=== PATIENT | male | born 1960 | race African-American/Black ===

== ENCOUNTER 2019-06-29 16:22 | Inpatient (IN) | payer OTHER ==
[2019-06-29] MEDS ORDERED: Fentanyl 100 MCG/2 ML VIAL ONE (16:45)
[2019-06-29] MEDS ORDERED: fentaNYL Citrate/PF 2,000 MCG in Sodium Chloride 0.9% 60 ML IV SCH ×2 (16:51→19:34)
[2019-06-29 17:01] LABS: Actual Bicarbonate (HCO3a) 19.6 mEq/L (22-28); Analyzer IN Cardio ER; Base Excess (BEa) -5.4 mEq/L (-2.0 to +3.0); CO2 Tension 36.6 mmHg (35.0-45.0); Carboxyhemoglobin (COHb) 1.1 gm% (0.0-3.0); Hemoglobin (Hb) 12.9 g/dL (14.0-18.0); O2 Tension (PaO2) 86.2 mmHg (80.0-100.0); Potassium - ABG Lab 4.33 mmol/L (3.70-5.30); pH, Arterial 7.35 (7.35-7.45)
[2019-06-29 17:03] LABS: Puncture Site RB
[2019-06-29 18:09] LABS: INR-International Normal Ratio 1.3; PTT 36.2 SEC (22.9-36.1); Prothrombin Time 16.5 SEC (12.0-14.7)
--- NOTE | 2019-06-29 18:24 | CT ---
CT Brain WO Con: 06/29/2019 5:42 PM CLINICAL HISTORY: Intracranial bleed. COMPARISON: None available. FINDINGS: Large high density, acute hemorrhage of the right cerebral hemisphere with a significant degree of casarez rrounding vasogenic edema is present. This is centered about an adjacent hyperdense mass. There is associated mass effect and midline shift with ventricular effacement. At the level of septum pellucidum, there is approximately 8 mm leftward midline shift. There is a hyperdense lesion at the right cerebral convexity with vasogenic edema indicating an addit ional metastatic lesion. IMPRESSION: Large intracranial hemorrhage with vasogenic edema and mass effect/midline shift. There are intracran ial lesions indicative of metastatic disease. Telephone call placed to ER physician at 1818 hours. Transcribed Date/Time: 06/29/2019 6:52 PM
[2019-06-29] MEDS ORDERED: Ondansetron PF 4 MG/2 ML Vial IVP PRN (18:33)
[2019-06-29] MEDS ORDERED: Mag-Al 1200 mg/1200 mg/30 ML UDCUP PO PRN (18:33)
[2019-06-29 18:48] LABS: #Basophils 0.1 thou/uL (0.0-0.2); #Lymphocytes 1.2 thou/uL (1.20-3.40); #Monocytes 1.3 thou/uL (0.11-0.59); #Neutrophils 13.7 thou/uL (1.40-6.50); %Basophils 0.3 % (0.0-1.0); %Lymphocytes 7.3 % (21.0-51.0); %Monocytes 7.9 % (0.0-10.0); %Neutrophils 84.5 % (42.0-75.0); Hemoglobin 13.7 g/dL (14.0-18.0); Mean Corpuscular HGB CONC 30.7 g/dL (32.0-36.0); Mean Platelet Volume 7.2 fL (7.4-10.4); Platelet Count 377 thou/uL (130-400); RBC Distribution Width 15.2 % (11.5-14.5); Red Blood Cell (RBC) Count 5.05 mill/uL (4.70-6.10); White Blood Cell (WBC) Count 16.2 thou/uL (4.8-10.8)
[2019-06-29 19:13] LABS: Anion Gap 18 mmol/L (10-20); BUN (Urea Nitrogen) 15 mg/dL (8.4-25.7); Bilirubin, Direct 1.2 mg/dL (0.1-0.3); Bilirubin, Total 1.9 mg/dL (0.2-1.2); Calc. Creatinine Clearance 0 mL/min (70-130); Calcium 9.2 mg/dL (7.8-10.44); Carbon Dioxide 19 mmol/L (22-29); Chloride 101 mmol/L (98-107); Estimated GFR-MDRD Greater than 90; Glucose 135 mg/dL (70-105); Sodium 133 mmol/L (136-145)
[2019-06-29 19:21] LABS: ALT (SGPT) 37 U/L (8-55); AST (SGOT) 142 U/L (5-34); Albumin 2.6 g/dL (3.5-5.0); Alkaline Phosphatase 159 U/L (40-110); Bilirubin, Direct 1.3 mg/dL (0.1-0.3); Protein, Total 7.7 g/dL (6.0-8.3); Transferrin, Serum 193 mg/dL (174-364)
[2019-06-29] MEDS ORDERED: Propofol 1,000 MG/100 ML VIAL IV PRN (19:34)
[2019-06-29] MEDS ORDERED: DISCONTINUE PREVIOUS NARCOTIC PAIN MEDICATIONS AND BENZODIAZEPINES FS SCH (19:34)
[2019-06-29] MEDS ORDERED: Lorazepam 2 MG/ML VIAL SLOW IVP PRN (19:34)
[2019-06-29] MEDS ORDERED: Fentanyl BOLUS 250 ML IVPB PRN (19:34)
[2019-06-29] MEDS ORDERED: Morphine 2 MG/ML SYRINGE SLOW IVP PRN (19:34)
[2019-06-29] MEDS ORDERED: Propofol BOLUS 1,000 MG/100 ML VIAL IV PRN (19:34)
[2019-06-29] MEDS: Famotidine/PF 20 mg/2ml Vial SLOW IVP SCH (20:38)
[2019-06-29] MEDS: Mannitol 12.5 GM/50 ML IV SCH (20:56)
--- NOTE | 2019-06-29 22:18 | PRG ---
DATE OF SERVICE: 06/29/2019 I personally examined the patient, reviewed imaging and records and agreed with the notes of Virginia Soto PA-C, dated 06/29/2019. Briefly, Ernie Rey is a 58-year-old prisoner who has recently been treated for bilateral pulmonary emboli with hypercoagulability resulting in the blood clots that threatened his life, it was likely from his diagnosis of liver cancer. Records indicate he carries a diagnosis of hepatitis C as well and therefore I believe the liver lesion is likely hepatocellular carcinoma related to his virus. It is in this setting that Mr. Rye was started on Lovenox to treat his pulmonary emboli. He had a neurological deterioration and was taken to the [facility] and transferred to [facility] after intubation. CT imaging of the brain revealed hemorrhage within the right hemisphere. It also revealed at least 2 masses (likely metastases) with surrounding vasogenic edema. There was a significant amount of mass effect with midline shift. There was vasogenic edema extending to the brainstem. Protamine was given at some point along the way and I have been told that it has been at least 18-20 hours since his last dose of the Lovenox. Repeat imaging did not show significant increase in the size of the intracerebral hemorrhage, but still documented the likely metastatic disease and edema with mass effect. I am seeing Mr. Rey in his ICU room now on the ventilator. Latest vitals shows a temperature 97.8 degrees Fahrenheit. His pulse is 111. He is breathing 26 times a minute. There is no sedation running currently and the medications used for sedation during intubation have worn off. Mr. Rey attempts to open his eyes to loud voice and gets his lids apart, but I do not see the irises. He does follow commands with the right hand and the right foot. When I ask complex questions and then ask him to raise his thumb if he understands, he responds about 40% of the time. This is not enough communication to make major medical decisions. The left side of the body is plegic. He has some reflex triple flexion in the left lower extremity with no motion on the left upper extremity. White blood cell count is 16.2 and platelets are 377. Sodium is low at 133. He has a low serum albumin at 2.6. AST and alkaline phosphatase are elevated, but the ALT is normal. Total and direct bilirubin are high. Current INR is 1.3 and APTT is 36.2. CT imaging was reviewed and discussed above. This is a difficult situation. Mr. Rey is currently following commands on the right side. He could participate in decision making, but he is not conscious enough to follow our conversation and the nuances of how to proceed. Mr. Rey hemorrhage has left him with some permanent neurological deficits that will not recover including the likely dense left hemiparesis or hemiplegia. If swelling increases or hemorrhage enlarges, then he will have a life threatening condition for which surgical intervention could save his life, but not return neurologic function. In this setting, I personally would not want aggressive measures and I certainly would not want a craniotomy. For parents or my siblings, I would not want that either. I would love the opportunity to discuss his care with his sister, but I have tried on the phone number of Cecy Perkins multiple times and there was no answer. There was no return call. I have spoken with Carlita dow, at the [facility] who does not want to make medical decisions for him. I have called emergency ethics review in case he deteriorates abruptly and we need to operate to save the life. There is a reasonable chance that he could survive this simply with medical therapy, blood pressure control, and intermittent mannitol and steroids. However, the brain metastases will need to be addressed if he wants to survive long-term and chemoradiotherapy likely recommended for any metastatic disease elsewhere. This is clearly advanced end-of-life decision making and knowing his wishes would be important. I will wait to hear from the ethics committee and thankful that he is neurologically stable from his admission so far. Job ID: [id number]
--- NOTE | 2019-06-29 22:19 | PRG ---
DATE OF SERVICE: 06/29/2019 I had a discussion with the Ethics Committee members about level of care to offer Mr. Rey, trying to balance the ethics of comfort treatment versus aggressive treatment. We had discussed the case with the warden as well, and reached the conclusion that we will not operate for any increasing swelling or increasing intracerebral hemorrhage, and we will not perform chest compressions should he develop a life-threatening dysrhythmia. However, we will continue with the intubation. We will continue with intermittent mannitol, and we will start Decadron therapy. We will add Protonix. We will use seizure prophylaxis and continue medical treatment only. As decisions need to be made going forward (tracheostomy, gastrostomy, continuation of care, or extubation, for example), then a continuing consultation with the Ethics Committee will be open, and Palliative Care Team will be contacted as well. As we have decided not to operate via craniotomy, then the Neurosurgery Team will provide aids counselor to the committee rather than intervention. I placed the DNR order in the computer system. Job ID: [id number] MTDD
[2019-06-29] MEDS ORDERED: Dextrose 50% Abboject 50 ML SYRINGE SLOW IVP PRN (22:20)
[2019-06-29] MEDS ORDERED: Dextrose 5% in Water 1,000 ML IV PRN (22:20)
[2019-06-29] MEDS ORDERED: Insulin Regular 300 UNITS/3 ML VIAL SC PRN ×2 (22:20)
[2019-06-29] MEDS ORDERED: Sodium Chloride 0.9% 1,000 ML IV SCH (22:30)
--- NOTE | 2019-06-29 23:15 | PRG ---
DATE OF SERVICE: 06/29/2019 SUBJECTIVE: The patient is a 58-year-old male who is an inmate. His has currently been admitted for intracranial hemorrhage. At this time, he is on mechanical ventilation and no information is available. From review of record, he was diagnosed with bilateral pulmonary embolism and is currently on anticoagulation. He also has history of liver cancer with metastasis. He presented to [facility] Room and was transferred to this facility for hospital admission. REVIEW OF SYSTEMS: Cannot be obtained from the patient due to current cognitive status. PHYSICAL EXAMINATION: CURRENT VITAL SIGNS: Temperature 97.8 with respirations of 16, blood pressure of 99/78, with heart rate of 103, O2 saturation 100% on mechanical ventilation. GENERAL: A 58-year-old male, in no apparent distress. LUNGS: Decreased air entry at the right base. No wheezing, rales, or rhonchi. HEART: S1 and S2 present. Regular. Tachycardic. No rubs or gallops. ABDOMEN: Soft, nontender. Bowel sounds present. EXTREMITIES: No edema or calf tenderness. NEUROLOGY AND PSYCHIATRY EXAMINATION: Could not be done due to mechanical ventilation/sedation. CODE STATUS: The patient has been changed to DNR per primary service after discussion with Ethics Committee. IMPRESSION: 1. Intracranial hemorrhage, management per primary service. 2. Acute respiratory failure secondary to #1. 3. History of bilateral pulmonary embolism, was on anticoagulation on admission. 4. History of liver cancer with metastasis. 5. Chronic hepatitis C. 6. Diabetes mellitus type 2. 7. Hypertension. 8. Hyperlipidemia. 9. Coronary artery disease. 10. Hypothyroidism. 11. Hyponatremia. 12. Moderate protein calorie malnutrition. 13. Abnormal liver function tests probably secondary to liver cancer. 14. Mild anemia, suspected to be chronic. DIAGNOSTIC TESTS: EKG by my review showed sinus rhythm without significant ST-T wave changes. Chest x-ray at [facility] showed large right-sided pleural effusion with large pulmonary opacities medially at the right mid lung zone with evidence of left-sided pulmonary metastasis. LABORATORY FINDINGS: WBC 16.2 with hemoglobin 13.7, hematocrit 44.5, platelets of 377. Sodium 133, potassium 5, chloride 101, bicarb 19, total bilirubin 2.0 with direct bilirubin 1.3. Albumin of 2.5. CT scan of the brain showed large intracranial hemorrhage with vasogenic edema and mass effect/midline shift. PLAN: The patient is currently on mechanical ventilation. He has been started on Decadron with GI prophylaxis. Continue ventilation-sedation protocol. We will add gentle IV hydration. He is also placed on seizure prophylaxis. We will add mild sliding scale. Continue Accu-Cheks q.6 hourly. Continue current ventilation setting per Pulmonary. We will recheck labs in a.m. Job ID: [id number]
[2019-06-29] MEDS: Sodium Chloride 0.9% 1,000 ML IV SCH (23:39)
[2019-06-29] MEDS: Dexamethasone 4 mg/ml Vial SLOW IVP SCH (23:39)
[2019-06-30] MEDS: Mannitol 12.5 GM/50 ML IV SCH (02:47)
[2019-06-30] MEDS ORDERED: Sodium Chloride 0.9% 250 ML IV SCH (05:45)
[2019-06-30] MEDS: Dexamethasone 4 mg/ml Vial SLOW IVP SCH ×4 (06:00→23:30)
[2019-06-30] MEDS: Sodium Chloride 0.9% 1,000 ML IV SCH ×3 (06:00→17:41)
[2019-06-30] MEDS ORDERED: Sodium Chloride 0.9% 250 ML IV PRN (06:15)
[2019-06-30 06:21] LABS: Hemoglobin 13.7 g/dL (14.0-18.0); Lymphocytes 10 % (21-51); MDiff Complete? YES; Mean Corpuscular HGB CONC 31.2 g/dL (32.0-36.0); Mean Corpuscular Hemoglobin 27.1 pg (27.0-31.0); Mean Corpuscular Volume 86.8 fL (78.0-98.0); Mean Platelet Volume 7.5 fL (7.4-10.4); Monocytes 1 % (0-10); Neutrophil 89 % (42-75); Platelet Count 380 thou/uL (130-400); Platelet Morphology Comment Appears Adequate; RBC Distribution Width 15.1 % (11.5-14.5); Red Blood Cell (RBC) Count 5.04 mill/uL (4.70-6.10); White Blood Cell (WBC) Count 10.4 thou/uL (4.8-10.8)
[2019-06-30 06:36] LABS: ALT (SGPT) 38 U/L (8-55); AST (SGOT) 161 U/L (5-34); Albumin 2.3 g/dL (3.5-5.0); Alkaline Phosphatase 138 U/L (40-110); Anion Gap 17 mmol/L (10-20); BUN (Urea Nitrogen) 19 mg/dL (8.4-25.7); Bilirubin, Total 1.7 mg/dL (0.2-1.2); Calc. Creatinine Clearance 81 mL/min (70-130); Calcium 8.6 mg/dL (7.8-10.44); Carbon Dioxide 18 mmol/L (22-29); Chloride 103 mmol/L (98-107); Estimated GFR-MDRD Greater than 90; Globulin 4.8 g/dL (2.4-3.5); Glucose 168 mg/dL (70-105); Potassium 5.5 mmol/L (3.5-5.1); Protein, Total 7.1 g/dL (6.0-8.3); Sodium 132 mmol/L (136-145)
[2019-06-30 07:18] LABS: Actual Bicarbonate (HCO3a) 18.8 mEq/L (22-28); Base Excess (BEa) -5.7 mEq/L (-2.0 to +3.0); CO2 Tension 34.1 mmHg (35.0-45.0); Calcium, Ionized 1.19 mmol/L (1.12-1.30); Carboxyhemoglobin (COHb) 1.7 gm% (0.0-3.0); Hemoglobin (Hb) 13.1 g/dL (14.0-18.0); O2 Tension (PaO2) 84.2 mmHg (80.0-100.0); Potassium - ABG Lab 5.51 mmol/L (3.70-5.30); pH, Arterial 7.36 (7.35-7.45)
[2019-06-30 07:19] LABS: ALV-art Gradient 158.375 (0-20); Puncture Site LBA
--- NOTE | 2019-06-30 07:19 | HP ---
HISTORY OF PRESENT ILLNESS: Mr. Rey is a 58-year-old male with past medical history significant for hepatitis C; cirrhosis; liver cancer; bilateral PE, on Lovenox. He is a prisoner and was brought to the Emergency Department over to [place] with [facility] consultation. He had a headache last night, began to be altered and with some left-sided weakness, got to the ED, deteriorated more and they decided to intubate. CT of the brain shows a large intracerebral hemorrhage with mass effect. He was transferred to [facility] for continued workup. Patient has not been without liver cancer with recent diagnosis of metastasis to the lungs, diagnosed with PE, currently taking Lovenox. He was given protamine while at the [place] ER and mannitol prior to transfer. Upon transfer, I see him in the emergency department, he has been off propofol and he is following commands on the right upper and lower extremities. He has no response to left upper or lower extremities, even painful stimuli. His pupils are small, but reactive and he has not been fighting the ventilator. REVIEW OF SYSTEMS: A 10-point review of systems is unable to be obtained. PAST MEDICAL HISTORY: Per the chart, hepatitis C, cirrhosis, liver cancer, cardiac artery disease, hypothyroidism, diabetes, hyperlipidemia, and hypertension. PAST SURGICAL HISTORY: Knee surgery. SOCIAL HISTORY: He is an inmate of a correctional facility. ALLERGIES: UNKNOWN, EXCEPT NICOTINIC ACID. PHYSICAL EXAMINATION: VITAL SIGNS: Blood pressure 99/78, heart rate 104, respirations 16, O2 sats 97% on the ventilator, and temperature 96.7 rectally. CONSTITUTIONAL: Patient is currently intubated. He is afebrile, slightly hypotensive. He has GCS of 8. HEENT: Head is normocephalic, atraumatic. Pupils are equal, round, and reactive to light. RESPIRATIONS: Normal on ventilator. Symmetric chest rise. EXTREMITIES: Patient is moving the right side, upper and lower extremities spontaneously and following commands. He has not shown any movement on the left, did not move to painful stimuli either. NEUROLOGIC: Patient's GCS is 8; 1, 1, 6. He is following commands on the right upper and lower extremities. He was able to use my hand and show me his thumb, wiggle his toes. No response to painful stimuli in the left upper or lower extremities. He is currently weaning off the ventilator. CT brain. First one is done at [facility], second one done at [facility], large intracranial hemorrhage with vasogenic edema, mass effect, and midline shift. There is intracranial lesion indicative of metastasis disease. ASSESSMENT AND PLAN: Mr. Rey is a 58-year-old male with cirrhosis; hepatitis C; liver cancer, now metastasis to his lungs. There is evidence of a new lesion in his brain and significant hemorrhage with midline shift. He is currently intubated, following commands of his right upper and lower extremities. No response to left upper or lower extremities. We are admitting him to the ICU, where he has received mannitol 40 mg IV push over at [facility]. He also had protamine at that time. He found out what his wishes would be. We are ordering LFTs, platelets, total protein, total bili , consulting hospitalist of Pulmonary Critical Medicine and likely Oncology for new lesion. We may need to perform a craniotomy to relieve pressure. This decision will be made shortly. For further information, please contact Neurosurgery team. Job ID: [id number]
--- NOTE | 2019-06-30 07:35 | PRG ---
DATE OF SERVICE: 06/30/2019 I saw Ernie Rey in his ICU room this morning. No events have been reported overnight. No one got any contact with family members and the warden did not make any end-of-life decisions for him yesterday. We convened a small ethics committee of three and agreed with the decision not to operate on this patient and not to perform chest compressions should he develop a life-threatening cardiac dysrhythmia. More decisions need to be made, however. Overnight, there has been no fever recorded. Blood pressures are low in the 80s to 90s. On examination, Mr. Rey attempt to open his eyes to loud voice. His lids get custodial up, and I can see sclerae, but no iris. Pupils react although the right is bit large. Mr. Rey follow commands on the right side of his body, has been lifting his thumb and wiggling his toes. There is no movement at all on the left. There is a bit of triple flexion to stimulus of the left foot, but that reflex activity is all I can generate. In spite of mannitol therapy, the sodium dropped to 132 from 133 yesterday. The white cell count came down to 10.4, the platelets are 380. Mr. Rey has multiple diagnoses. From report, he has hepatitis C and hepatocellular carcinoma. He has metastases in the brain, he has bilateral pulmonary emboli, and he has intracerebral hemorrhage from the combination of anticoagulation and brain metastasis. Thankfully, Mr. Rey did not have a neurological deterioration overnight. We decided that neurosurgical intervention is not warranted, but there will be more decisions to make regarding tube feeds, tracheostomy, and placement versus comfort measures. These will need to be made in ethics committee or by a fixture relamper. I will consult the Medical Team and the Palliative Care Team, and the Medical Team will likely assume primary care of the patient for this nonsurgical intracerebral hemorrhage. Job ID: [id number] [facility]
--- NOTE | 2019-06-30 07:46 | CT ---
PRELIMINARY REPORT/[facility]/EMERGENCY AFTER HOURS PROCEDURE PROCEDURE INFORMATION: Exam: CT Head Without Contrast Exam date and time: 06/30/2019 3:36 AM Clinical history: 58 years old, male; Condition or disease; Patient HX: F/u ich TECHNIQUE: Imaging protocol: Computed tomography of the head without contrast. COMPARISON: CT Brain WO Con 06/29/2019 6:08 PM FINDINGS: Brain: Direct comparison of known right basal ganglia known hemorrhage is limited due to difference of head position and/or gantry angulation, however no significant interval change is detected with marked surrounding hypodense halo. Unchanged midline shift. Ventricles: Unchanged right lateral ventricle compression and borderline prominence of left lateral ventricle due to midline shift. Bones/joints: No acute fracture. Sinuses: No fluid levels. Mastoid air cells: Aerated. Soft tissues: Unremarkable. IMPRESSION: No significant interval change. Thank you for allowing us to participate in the care of your patient. Dictated and Authenticated by: Jessica Ramirez MD 06/30/2019 4:21 AM Central Time ([place] & [place]) FINAL REPORT HEAD CT WITHOUT CONTRAST: Date: 06/30/2019 COMPARISON: 06/29/2019. HISTORY: Reevaluate intracranial hemorrhage. FINDINGS: I agree with the preliminary report. There is an intra-axial hemorrhage on the right center ed within the basal ganglia measuring 5.8 cm in AP dimension, not significantly changed. There is surrounding vasogenic edema. There are intra-axial mass lesions as well, including a 2.9 cm mass just lateral to the above-described intra-axial hemorrhage. There is also a mass near the vertex anteriorly within the right frontal lobe measuring 2 cm. There is significant surrounding vasogenic e yared adjacent to both intra-axial masses. There is midline shift from right to left measuring approximately 1 cm at the level of the third ventricle. The imaged paranasal sinuses/mastoid air cell s demonstrate no acute findings. Corticated lucencies are seen involving the anterior and posterior aspect of the C1 ring suggesting congenital abnormality. IMPRESSION: No significant change in prominent right basal ganglia intra-axial hemorrhage with adjace nt edema. There are at least two masses within the right cerebral hemisphere with significant surrounding vasogenic edema suggesting metastatic disease. Follow-up MRI advised. 1 cm right to left midline shift appears grossly unchanged. Code QA Transcribed Date/Time: 06/30/2019 8:28 AM Reported By: Faisal Orellanaally Signed: 06/30/2019 8:35 AM
--- NOTE | 2019-06-30 08:06 | RAD ---
CHEST 1 VIEW: HISTORY: Ventilated patient. COMPARISON: Chest radiograph from 2007. FINDINGS: The patient is intubated with endotracheal tube tip above the aliza and proximally 3 cm. Enteric tu be tip within the gastric body. There is abnormal right lung parenchymal infiltrate as well as layering right pleural effusion. Abno rmal radiopaque body projects over the right upper quadrant of the abdomen. IMPRESSION: 1. Satisfactory position of the enteric and endotracheal tubes. 2. Radiopaque material projecting over the right upper quadrant of the abdomen could be posttreatmen t in nature given the history. Recommend correlation with the patient's history of hepatic embolizat ion or packing material. 3. Large right effusion with consolidation/mass in the right lower lobe. 4. Possible nodule in the left lung base. POS: CET
[2019-06-30] MEDS ORDERED: FLU VACC QS2019-20(6MOS UP)/PF 60 MCG/0.5 ML SYRINGE IM ONE (09:00)
[2019-06-30] MEDS: Famotidine/PF 20 mg/2ml Vial SLOW IVP SCH (09:22)
[2019-06-30] MEDS: Pantoprazole 40 MG VIAL IVP SCH (09:22)
--- NOTE | 2019-06-30 11:17 | PDOC.HOSPP ---
- Subjective Encounter Date: 06/30/19 Encounter Time: 11:15 non-verbal - Objective Vital Signs & Weight: Vital Signs (12 hours) Temp Pulse Resp BP Pulse Ox 06/30/19 08:00 97.6 F 16 100 06/30/19 06:36 93 80/58 L 06/30/19 06:00 16 06/30/19 04:00 16 06/30/19 03:00 97.2 F L 06/30/19 02:02 97 91/69 06/30/19 02:00 16 06/30/19 00:00 16 Weight Weight 132 lb 11.492 oz Most Recent Monitor Data Heart Rate from ECG 94 NIBP 98/63 NIBP BP-Mean 74 Respiration from ECG 16 SpO2 99 I&O: 06/29/19 06/30/19 07/01/19 06:59 06:59 06:59 Intake Total 923 294.6 Output Total 870 105 Balance 53 189.6 Result Diagrams: 06/30/19 05:39 06/30/19 05:39 Additional Labs: Accuchecks 06/30/19 06/29/19 05:41 23:45 POC Glucose 139 H 131 H Hospitalist ROS - Medication Medications: Active Medications Generic Name Dose Route Start Last Admin Trade Name Freq PRN Reason Stop Dose Admin Dexamethasone 4 mg 06/29/19 23:59 06/30/19 06:00 Decadron SLOW IVP 4 mg Q6HR JAMES Administration Levetiracetam 500 mg/ Device 100 mls @ 200 mls/hr 06/30/19 09:00 06/30/19 09: 22 IVPB 100 mls BID JAMES Administration Sodium Chloride 1,000 mls @ 50 mls/hr 06/29/19 23:16 06/30/19 06:00 Normal Saline 0.9% IV 1,000 mls .Q20H JAMES Administration Pantoprazole Sodium 40 mg 06/30/19 09:00 06/30/19 09:22 Protonix IVP 40 mg DAILY JAMES Administration - Exam General Appearance: ill appearing Eye: PERRL, anicteric sclera, scleral icterus ENT: normocephalic atraumatic, no oropharyngeal lesions, moist mucosa, dry oral mucosa Neck: supple, symmetric, no JVD, no thyromegaly, no lymphadenopathy, no carotid bruit, JVD Heart: RRR, no murmur, no gallops, no rubs, normal peripheral pulses, irregular , diminshed peripheral pulses, murmur present, II/IV, III/IV Respiratory: CTAB, no wheezes, no rales, no ronchi, normal chest expansion, no tachypnea, normal percussion, rales, rhonchi, tachypneic, wheezes Gastrointestinal: soft, non-tender, non-distended, normal bowel sounds, no palpable masses, no hepatomegaly, no splenomegaly, no bruit, no guarding, no rigidity, tender to palpation, distended, diminished bowl sounds, voluntary guarding Extremities: no cyanosis, no clubbing, no edema, 1+ LE edema, 2+ LE edema, clubbing Skin: normal turgor, no lesions, no rashes, tenting Hosp A/P (1) Respiratory failure Code(s): J96.90 - RESPIRATORY FAILURE, UNSP, UNSP W HYPOXIA OR HYPERCAPNIA Status: Acute - Plan social group worker (ethics committe referal for possible DNR)
[2019-06-30 11:53] VITALS: BMI 21.4
--- NOTE | 2019-06-30 15:19 | CON ---
DATE OF CONSULTATION: HISTORY OF PRESENT ILLNESS: Ernie Rey is a 58-year-old prisoner, who apparently was brought into [facility] after he developed unresponsiveness, change in mental status. CT showed right frontal parietal bleed. Obviously, we are unable to get any history. He is in the ICU, intubated on the vent, the reason for the consult. Additional information from reviewing his extensive medical records includes; 1. Liver cancer with metastases to the brain and lung. 2. Recent diagnosis of pulmonary emboli, on anticoagulation. 3. History of hepatitis C. 4. History of cirrhosis. 5. History of coronary artery disease. 6. History of hypothyroidism. 7. Hypertension. 8. Hyperlipidemia. PAST SURGICAL HISTORY: Include the knee surgery. MEDICATIONS: His list of medicine from the senior care as outlined in his medical transfer sheet includes medicine that is, 1. Protamine was given. 2. Propofol. 3. Mannitol. 4. Synthroid 50 mcg. 5. Lisinopril 10. 6. Insulin N 26 units in the morning, 50 units in the evening. 7. Omeprazole 20. 8. Spironolactone 50. 9. Apparently getting Lovenox. ALLERGIES: UNKNOWN. REVIEW OF SYSTEMS: Unobtainable. PHYSICAL EXAMINATION: GENERAL: On examination, on fentanyl, he opens his eyes. VITAL SIGNS: Blood pressure is 90/60, pulse , respiratory rate of 18, and saturations are 100%. CHEST: Decreased breath sounds. No wheezing. CARDIAC: Normal S1 and S2. No gallops. ABDOMEN: No masses. NEUROLOGICAL: He moves his right side. LABORATORY DATA: White count 10,000, H and H of 13 and 43, and platelet count is 380. PO2 is 94, pCO2 is 34, pH 7.36. Lytes are normal. Sodium 132. IMPRESSION: 1. Large right basal ganglia intra-axial hemorrhage with edema. Abnormal liver profile. Chest x-ray showing a right lower lung infiltrate, pleural effusion. 2. Intracerebral hemorrhage. 3. Metastatic cancer. 4. History of pulmonary embolism, deep venous thrombosis. 5. Cirrhosis. 6. Liver cancer. 7. History of hypothyroidism. 8. Hypertension. PLAN: He is DNR, trying to get the family regarding ongoing issues. He is apparently not a surgical candidate. Pulmonary will follow while in the ICU. This is a 45-minute of critical care time. Job ID: [id number]
--- NOTE | 2019-06-30 16:41 | PDOC.MOPN ---
Interval History: Please see Santa Ahmadi NP, consult note for full history. Pt is an inmate and known to have metastatic HCC and now presenting with hemorrhagic brain metastases after starting Lovenox for PE. He is intubated and unable to move his left side. He has no one to make decisions for him as no family can be found and the [facility] has declined to make the decision. From an oncologic standpoint, he has an aggressive, incurable disease. The treatment for metastatic HCC consists of either a TKI or immunotherapy. TKI's are contraindicated given hemorrhagic brain mets. Immunotherapy would be the only potential treatment, however the response rate is very low and the risks of treatment outweight any potential benefit at this time given his severe morbidity and ECOG PS of 4, and so he is not a candidate for this treatment either. I would recommend DNR and Hospice for this patient, and have communicated this with Dr. Givens. - Vital Signs Vital Signs: Vital Signs (12 hours) Temp Pulse Resp BP Pulse Ox 06/30/19 15:00 98.3 F 06/30/19 14:34 98 81/69 L 06/30/19 14:00 17 06/30/19 12:00 16 06/30/19 11:19 104 H 96/63 06/30/19 11:00 98.5 F 06/30/19 10:00 16 06/30/19 08:00 97.6 F 16 100 06/30/19 06:36 93 80/58 L 06/30/19 06:00 16 Weight Admit Weight 137 lb 2.04 oz Weight 132 lb 11.492 oz Most Recent Monitor Data Heart Rate from ECG 98 NIBP 81/59 NIBP BP-Mean 66 Respiration from ECG 17 SpO2 98 - Labs Result Diagrams: 06/30/19 05:39 06/30/19 05:39 Lab results: Laboratory Results - last 24 hr 06/30/19 11:28: POC Glucose 150 H 06/30/19 06:45: Specimen Type ARTERIAL, Puncture Site LBA, Bicarbonate Actual 18.8 L, ABG pH 7.36, ABG pCO2 34.1 L, ABG pO2 84.2, ABG O2 Sat Calc/Tori 94.8, ABG O2 Content 17.2 L, ABG Base Excess -5.7 L, ABG Hematocrit 39.0 L, ABG Hemoglobin 13.1 L, ABG Oxyhemoglobin 93.1 L, ABG Carboxyhemoglobin 1.7, ABG Methemoglobin 0.10, ABG Deoxyhemoglobin 5.1 H, [place] Test NOT DONE, A-a O2 Gradient 158.375 H, Sodium 134 L, Potassium 5.51 H, Chloride 103, Ionized Calcium 1.19, Mode of Support SIMV.PSV, Mechanical Rate 16, Inspired O2 40, Tidal Volume 450, Pressure Support 10, PEEP or CPAP 5.0 06/30/19 05:41: POC Glucose 139 H 06/30/19 05:39: Sodium 132 L, Potassium 5.5 H, Chloride 103, Carbon Dioxide 18 L , Anion Gap 17, BUN 19, Creatinine 0.86, Estimated GFR (MDRD) Greater than 90, Glucose 168 H, Calcium 8.6, Magnesium 2.0, Total Bilirubin 1.7 H, AST 161 H, ALT 38, Alkaline Phosphatase 138 H, Serum Total Protein 7.1, Albumin 2.3 L, Globulin 4.8 H, Albumin/Globulin Ratio 0.5 L 06/30/19 05:39: WBC 10.4, RBC 5.04, Hgb 13.7 L, Hct 43.8, MCV 86.8, MCH 27.1, MCHC 31.2 L, RDW 15.1 H, Plt Count 380, MPV 7.5, Neutrophils % (Manual) 89 H, Lymphocytes % (Manual) 10 L, Monocytes % (Manual) 1, Plt Morphology Comment Appears Adequate 06/29/19 23:45: POC Glucose 131 H 06/29/19 18:37: Albumin 2.5 L 06/29/19 18:37: Ammonia 29 06/29/19 18:37: WBC 16.2 H, RBC 5.05, Hgb 13.7 L, Hct 44.5, MCV 88.0, MCH 27.0, MCHC 30.7 L, RDW 15.2 H, Plt Count 377, MPV 7.2 L, Neutrophils % 84.5 H, Lymphocytes % 7.3 L, Monocytes % 7.9, Eosinophils % 0.0, Basophils % 0.3, Neutrophils # 13.7 H, Lymphocytes # 1.2, Monocytes # 1.3 H, Eosinophils # 0.0, Basophils # 0.1 06/29/19 18:37: Sodium 133 L, Potassium 5.0, Chloride 101, Carbon Dioxide 19 L, Anion Gap 18, BUN 15, Creatinine 0.79, Estimated GFR (MDRD) Greater than 90, Glucose 135 H, Calcium 9.2, Total Bilirubin 1.9 H, Direct Bilirubin 1.2 H 06/29/19 18:37: Transferrin 193, Total Bilirubin 2.0 H, Direct Bilirubin 1.3 H, AST 142 H, ALT 37, Alkaline Phosphatase 159 H, Serum Total Protein 7.7, Albumin 2.6 L 06/29/19 17:53: PT 16.5 H, INR 1.3, APTT 36.2 H 06/29/19 17:00: Specimen Type ARTERIAL, Puncture Site RB, Bicarbonate Actual 19.6 L, ABG pH 7.35, ABG pCO2 36.6, ABG pO2 86.2, ABG O2 Sat Calc/Tori 94.7, ABG O2 Content 16.9 L, ABG Base Excess -5.4 L, ABG Hematocrit 38.0 L, ABG Hemoglobin 12.9 L, ABG Oxyhemoglobin 92.9 L, ABG Carboxyhemoglobin 1.1, ABG Methemoglobin 0.80, ABG Deoxyhemoglobin 5.2 H, [place] Test NOT DONE, A-a O2 Gradient 224.550 H, Sodium 131 L, Potassium 4.33, Chloride 102, Ionized Calcium 1.20, Mode of Support SIMV, % Minute Volume 7.2, Mechanical Rate 16, Inspired O2 50, Tidal Volume 450, Pressure Support 10, PEEP or CPAP 5.0 A/P - Problem (1) Hepatocellular carcinoma Current Visit: Yes Code(s): C22.0 - LIVER CELL CARCINOMA Status: Acute - Plan Plan: Patient is not a candidate for treatment of his metastatic HCC. Prognosis is grim. I would recommend DNR and Hospice for this patient, and have communicated this with Dr. Givens.
--- NOTE | 2019-06-30 22:02 | CON ---
DATE OF CONSULTATION: REASON FOR CONSULT: Hepatocellular carcinoma. HISTORY OF PRESENT ILLNESS: Mr. Rey is a 58-year-old prisoner with a history of hepatitis C cirrhosis, hepatocellular carcinoma and recent PE, who was brought to the [facility] ER with headache and altered mental status. Brain CT showed large intracerebral hemorrhage with mass effect, likely secondary to Lovenox. He was transferred to [facility] for further workup. The patient is intubated and in the ICU. He has been seen by Neurosurgery, who is treating him with mannitol and steroids. Per Dr. Lutz, surgical intervention is not warranted. We were asked to see the patient for assistance with treatment and planning. The patient is in the ICU on the ventilator. He is only able to move his right-side. PAST MEDICAL HISTORY: 1. Hepatocellular carcinoma. 2. Cirrhosis. 3. Hepatitis C. 4. Hypertension. 5. Coronary artery disease. 6. Hyperlipidemia. 7. Hypothyroidism. PAST SURGICAL HISTORY: Knee surgery. CURRENT MEDICATIONS: 1. Decadron. 2. Fentanyl. 3. Keppra. 4. Ativan. 5. Morphine. 6. Protonix. 7. Normal saline. FAMILY HISTORY: Unknown. SOCIAL HISTORY: He is an inmate of the [employer]. REVIEW OF SYSTEMS: Unable to obtain secondary to intubation. PHYSICAL EXAMINATION: VITAL SIGNS: Temperature is 98.3, pulse is 98, respiratory rate is 17. BP is 81 /69, he is 98% on O2. GENERAL: This is a well-developed, well-nourished male, who is intubated. HEENT: Normocephalic and atraumatic. NECK: Supple. CV: Regular rate and rhythm. LUNGS: Clear anterior. He has an ET tube and an OG tube. ABDOMEN: Firm. Bowel sounds are positive. EXTREMITIES: No clubbing, or cyanosis. NEUROLOGICAL: Unable to assess. PERTINENT LABORATORY DATA AND X-RAYS: Current WBCs are 10.4, hemoglobin 13.7, hematocrit 43.8, platelet count is 380,000. He has 84% neutrophils, 10% lymphocytes. PT 16.5, INR is 1.3, PTT 36.2. Sodium 132, potassium 5.5, chloride 103, CO2 is 18, BUN is 19, creatinine 0.86, calcium 8.6, magnesium 2.0, bilirubin 1.7, AST is 161, ALT 38, alkaline phosphatase is 138. Serum total protein is 7.1, albumin 2.3, globulin 4.8. ASSESSMENT: 1. History of hepatocellular carcinoma. 2. Bilateral pulmonary emboli. 3. Large right basal ganglia intra-axial hemorrhage. DISCUSSION: It is unclear if he has been on any treatment for his hepatocellular carcinoma. Regardless, he now apparently has metastatic disease with hemorrhagic lesions in his brain. He is a poor candidate for any further treatment as all care will be directed toward palliation of symptoms. He is currently a DNR and attempts are being made to contact his next of kin. The case has been discussed with Dr. Cordero, who will follow. Thank you for the consult. Job ID: [id number] [facility]ITAL[facility]
[2019-07-01] MEDS: Sodium Chloride 0.9% 1,000 ML IV SCH (01:54)
[2019-07-01] MEDS: Dexamethasone 4 mg/ml Vial SLOW IVP SCH (05:54)
[2019-07-01 06:43] LABS: Hemoglobin 12.3 g/dL (14.0-18.0); Hypochromia SLIGHT = 6-15 cells (100X) (0-5/hpf); Lymphocytes 4 % (21-51); MDiff Complete? YES; Mean Corpuscular HGB CONC 30.6 g/dL (32.0-36.0); Mean Corpuscular Hemoglobin 26.6 pg (27.0-31.0); Mean Corpuscular Volume 86.8 fL (78.0-98.0); Mean Platelet Volume 7.7 fL (7.4-10.4); Monocytes 5 % (0-10); Neutrophil 91 % (42-75); Platelet Count 344 thou/uL (130-400); Platelet Morphology Comment Appears Adequate; RBC Distribution Width 15.2 % (11.5-14.5); Red Blood Cell (RBC) Count 4.64 mill/uL (4.70-6.10); White Blood Cell (WBC) Count 11.2 thou/uL (4.8-10.8)
[2019-07-01 07:25] LABS: Actual Bicarbonate (HCO3a) 17.6 mEq/L (22-28); Base Excess (BEa) -8.2 mEq/L (-2.0 to +3.0); CO2 Tension 37.1 mmHg (35.0-45.0); Carboxyhemoglobin (COHb) 1.6 gm% (0.0-3.0); Hemoglobin (Hb) 16.2 g/dL (14.0-18.0); Potassium - ABG Lab 5.49 mmol/L (3.70-5.30); pH, Arterial 7.29 (7.35-7.45)
[2019-07-01 07:28] LABS: O2 Tension (PaO2) 56.7 mmHg (80.0-100.0)
[2019-07-01 07:30] LABS: ALV-art Gradient 110.825 (0-20); Puncture Site LRA
[2019-07-01 07:33] LABS: ALT (SGPT) 74 U/L (8-55); AST (SGOT) 301 U/L (5-34); Albumin 2.7 g/dL (3.5-5.0); Alkaline Phosphatase 131 U/L (40-110); Anion Gap 17 mmol/L (10-20); BUN (Urea Nitrogen) 50 mg/dL (8.4-25.7); Calc. Creatinine Clearance 27 mL/min (70-130); Calcium 8.6 mg/dL (7.8-10.44); Carbon Dioxide 16 mmol/L (22-29); Chloride 106 mmol/L (98-107); Estimated GFR-MDRD 32; Globulin 4.4 g/dL (2.4-3.5); Glucose 249 mg/dL (70-105); Protein, Total 7.1 g/dL (6.0-8.3); Sodium 133 mmol/L (136-145)
--- NOTE | 2019-07-01 08:02 | PRG ---
DATE OF SERVICE: 07/01/2019 Mr. Rey is an unfortunate 58-year-old male with metastatic hepatic carcinoma, hepatitis C, bilateral PE with acute intracranial hemorrhage from liver metastases to the brain. Intially, it had been difficult to contact any family, and the warden was not comfortable making decisions, therefore small ethics committee convened and agreed that considering his grim prognosis that no surgery was recommended and that he should be made DNR. I have been told that the family has been located in the plan to come to the hospital at some point today to discuss ongoing care such as comfort measures versus trach and PEG. He has had no overnight events. On exam, his pupils are small, right is somewhat larger than the left. They are very sluggish. He has left hemiplegia, but will follow commands on the right upper and lower extremity. He does not open his eyes, but does attempt to open his eyes. Considering the patient's grim prognosis, Neurosurgery is not recommending any acute surgical intervention. We have consulted the Medical and Palliative Care Team to assist with ongoing discussions regarding comfort care versus trach and PEG. Hopefully, the family can meet with them later today to make some additional decisions in this regard. Job ID: [id number] MTDD
[2019-07-01] MEDS: Pantoprazole 40 MG VIAL IVP SCH (08:48)
--- NOTE | 2019-07-01 10:02 | RAD ---
PORTABLE CHEST: HISTORY: CCU followup. COMPARISON: 06/30/2019. FINDINGS: ET tube and NG tube remain in place. Opacification of the right lung base consistent with effusion and right basilar atelectasis and infil trate again noted. Left lung remains clear. IMPRESSION: Not significantly changed from yesterday. POS: [facility]
--- NOTE | 2019-07-01 10:34 | PRG ---
DATE OF SERVICE: 07/01/2019 Ernie Rey is a 58-year-old gentleman with respiratory failure, intracerebral hemorrhage, metastatic liver cancer. His only living relative is a sister, who came at the bedside today. We discussed the findings regarding Mr. Rey' multiorgan failure. She was unaware of any of his medical problems except she knew he had liver cancer. After lengthy discussion with the sister, the patient has no , no kids. She agreed that we should extubate and do comfort measures. We will try and arrange that shortly. We made a DNR comfort care. Job ID: [id number]
[2019-07-01] MEDS ORDERED: Morphine 4 MG/ML VIAL ONE (10:47)
--- NOTE | 2019-07-01 13:19 | PRG ---
DATE OF SERVICE: 07/01/2019 I agree with Mirela Cuenca's evaluation. The patient is not a candidate for surgery and this has been decided by Dr. Givens and the Ethics Committee. No plans for any neurosurgical intervention. Defer to hospitalist, Critical Care, and Palliative Care regarding ongoing management. Job ID: [id number]
--- NOTE | 2019-07-01 13:33 | PDOC.HOSPP ---
- Subjective Encounter Date: 07/01/19 Encounter Time: 09:00 Subjective: Intubated , noresponse to any stimulus.. - Objective Vital Signs & Weight: Vital Signs (12 hours) Temp Pulse Resp BP Pulse Ox 07/01/19 10:24 85 92/62 07/01/19 10:00 16 07/01/19 08:00 16 100 07/01/19 07:00 97.8 F 07/01/19 06:28 86 90/57 L 07/01/19 06:00 16 07/01/19 04:00 16 07/01/19 03:00 97.2 F L 07/01/19 02:46 85 07/01/19 02:00 16 Weight Admit Weight 137 lb 2.04 oz Weight 130 lb 15.273 oz Most Recent Monitor Data Heart Rate from ECG 85 NIBP 98/67 NIBP BP-Mean 77 Respiration from ECG 21 SpO2 92 I&O: 06/30/19 07/01/19 07/02/19 06:59 06:59 06:59 Intake Total 923 3355.8 Output Total 870 485 10 Balance 53 2870.8 -10 Result Diagrams: 07/01/19 06:02 07/01/19 06:57 Additional Labs: Accuchecks 07/01/19 06/30/19 06/30/19 05:56 23:32 16:50 POC Glucose 195 H 183 H 185 H - Exam General Appearance: ill appearing ENT: normocephalic atraumatic Neck: no JVD, no carotid bruit Heart: RRR Respiratory: CTAB Gastrointestinal: soft Extremities: 1+ LE edema Hosp A/P (1) Hepatocellular carcinoma Code(s): C22.0 - LIVER CELL CARCINOMA Status: Acute (2) Respiratory failure Code(s): J96.90 - RESPIRATORY FAILURE, UNSP, UNSP W HYPOXIA OR HYPERCAPNIA Status: Acute - Plan Discussed with sister... Considering palliative care.
--- NOTE | 2019-07-01 13:36 | PDOC.EVN ---
Event Note - Event Note Event Note: Patient was extubated earlier.. DNR On palliative care.
[2019-07-01] MEDS: Morphine 4 MG/ML VIAL IV PRN (16:41)
[2019-07-01] MEDS: Lorazepam 2 MG/ML VIAL SLOW IVP PRN (16:42)
[2019-07-01 18:46] VITALS: TEMP 97.5
[2019-07-02] MEDS: Morphine 4 MG/ML VIAL IV PRN ×4 (00:22→05:19)
[2019-07-02] MEDS: Lorazepam 2 MG/ML VIAL SLOW IVP PRN ×5 (01:54→06:16)
[2019-07-02 04:28] VITALS: BP 89/52
--- NOTE | 2019-07-02 11:29 | PDOC.EVN ---
Event Note - Event Note Event Note: note:( Discharge Summary) Patient was pronouced at 0741 today. Admitting date: 06/29/2019 Cause of : metastatic liver cancer with respiratory failure, protein- calorie malnutrition. He was TNDA yesterday. Has long standing histrory of HTN, DM.. Consultants: Ruchi Cordero and Lina. Procedures: Endotracheal intubation with mechanical ventilation, head CT, chest x-ray.
--- NOTE | 2019-07-03 07:18 | PRG ---
DATE OF SERVICE: 07/01/2019 SUBJECTIVE: Ernie Rey is a 58-year-old gentleman, on 25 mcg of fentanyl, apparently sister arrived yesterday from [place]. She is to come again to make a decision. OBJECTIVE: VITAL SIGNS: His temperature is 97, blood pressure is 97/70, pulse 70, respiratory rate 18. CHEST: Decreased breath sounds. No wheezing. CARDIAC: Normal S1 and S2. No gallops. LABORATORY DATA: H and H are 12 and 40, white count 11,000. PO2 is 56, pCO2 37, pH 7.29, on 30, 16. Potassium is 6, BUN and creatinine of 50 and 2.56. Liver function . X-ray shows worsening right-sided pleural effusion. ASSESSMENT: 1. Multiorgan failure. 2. Metastatic carcinoma. 3. Hepatitis C. 4. increasing pleural effusion, increasing renal failure. PLAN: He is not a candidate for dialysis. Continue comfort care. Hopefully, we will discuss with family as they arrive regarding ongoing issues. He has a very large intracranial hemorrhage in the right basal ganglia. One-half hour of critical care time. Job ID: [id number]
== END 2019-07-02 11:38 | disposition expired | DRG 64 ==
LOC: ERS 16:22 → CCU 18:33 → ONC 07-01 14:13
PROVIDERS: ADMIT Neurological Surgery; ATTEND Neurological Surgery
PROC: 5A1945Z Respiratory Ventilation, 24-96 Consecutive Hours (ICD-10-PCS; principal; 2019-06-29)
PROC: 0BH17EZ Insertion of Endotracheal Airway into Trachea, Via Natural or Artificial Opening (ICD-10-PCS; 2019-06-29)
DX: I62.9 Nontraumatic intracranial hemorrhage, unspecified (principal); J96.00 Acute respiratory failure, unspecified whether with hypoxia or hypercapnia; G93.6 Cerebral edema; C79.31 Secondary malignant neoplasm of brain; C22.8 Malignant neoplasm of liver, primary, unspecified as to type; C78.00 Secondary malignant neoplasm of unspecified lung; G81.94 Hemiplegia, unspecified affecting left nondominant side; E87.1 Hypo-osmolality and hyponatremia; E44.0 Moderate protein-calorie malnutrition; J90 Pleural effusion, not elsewhere classified; R40.2312 Coma scale, best motor response, none, at arrival to emergency department; R40.2112 Coma scale, eyes open, never, at arrival to emergency department; R40.2212 Coma scale, best verbal response, none, at arrival to emergency department; E11.9 Type 2 diabetes mellitus without complications; I10 Essential (primary) hypertension; Z66 Do not resuscitate; Z51.5 Encounter for palliative care; I25.10 Atherosclerotic heart disease of native coronary artery without angina pectoris; B18.2 Chronic viral hepatitis C; E03.9 Hypothyroidism, unspecified; D63.8 Anemia in other chronic diseases classified elsewhere; E78.5 Hyperlipidemia, unspecified; Z86.711 Personal history of pulmonary embolism; Z79.01 Long term (current) use of anticoagulants; Z86.718 Personal history of other venous thrombosis and embolism; K74.60 Unspecified cirrhosis of liver
CPT/HCPCS: 36415; 36416; 70450; 71045; 80048; 80053; 80076; 82140; 82247; 82805; 83735; 84466; 85007; 85025; 85027; 85610; 85730; 94002; 94003; 96361; 96365; 96366; 96376; C9113; J1100; J1815; J1953; J2060; J2150; J2270; J3010; J3490; P9045; S0028